=== PATIENT | male | born 1975 | race Caucasian/White ===

== ENCOUNTER 2025-02-24 16:48 | Emergency (ER) | payer OTHER, SELFPAY ==
[2025-02-24 16:52] VITALS: BP 160/85; PULSE 69; TEMP 36.5; O2SAT 98; BMI 40.6
--- NOTE | 2025-02-24 16:58 | XR_ITS ---
[facility] [place] [id number] Patient Name: TERI HUNT MRN: [id number] date: 1975 Sex: M Assigned Patient Location: ED.MAIN Current Patient Location: ED.MAIN Accession/Order Number: [id number] Exam Date: 02/24/2025 17:45 Report Date: 02/24/2025 17:46 At the request of: SAYRA EDDY Procedure: XR forearm LT 2V XR forearm LT 2V 02/24/2025 5:33 PM SIGNS AND SYMPTOMS: ^injury midfoearm/ laceration saw ^Y PROTOCOL: Frontal and lateral radiographs of the left forearm COMPARISON: None FINDINGS: There is a soft tissue laceration along the dorsum of the forearm involving the subcutaneous soft tissues fat but also appearing to extend into the underlying flexor musculature. The radius and ulna are intact. No abnormal radiopaque foreign body. Degenerative changes are noted in the radiocarpal joint space. XR/XR forearm LT 2V IMPRESSION: There is a soft tissue laceration along the dorsum of the forearm involving the subcutaneous soft tissues fat but also appearing to extend into the underlying flexor musculature. The radius and ulna are intact. No abnormal radiopaque foreign body. Impression dictated by: Shashank Lizama M.D. 02/24/2025 5:46 PM Dictation Location: [place] [address] Electronically authenticated by: [id number] Y Date: 02/24/2025 17:46
--- NOTE | 2025-02-24 17:15 | ED.WOUNDLAC1 ---
HPI - Wound/Laceration General Chief Complaint: Wound/Laceration Stated Complaint: LACERATION Time Seen by Provider: 02/24/25 16:55 Source: patient Mode of arrival: walk-in Limitations: no limitations History of Present Illness Onset (ago): hour(s) Extremity Location: Left: forearm Place: Reports home Patient tetanus UTD: Yes Context: Reports accidental Associated symptoms: Reports pain Related Data Home Medications ?Medication ?Instructions ?Recorded ?Confirmed atorvastatin 10 mg tablet 10 mg PO QDAY 02/24/25 02/24/25 Previous Rx's ?Medication ?Instructions ?Recorded cephalexin 500 mg capsule 500 mg PO Q8H 10 days #30 caps 02/24/25 Allergies Allergy/AdvReac Type Severity Reaction Status Date / Time No Known Drug Allergies Allergy Verified 02/24/25 16:52 PFSH PFSH Social History Little interest or pleasure in doing things: not at all Feeling down, depressed, or hopeless: not at all Exam Constitutional Vital Signs, click to edit/add: Last Vital Signs Temp 97.7 F 02/24/25 16:52 Pulse 69 02/24/25 16:52 Resp 18 02/24/25 16:52 BP 160/85 H 02/24/25 16:52 Pulse Ox 98 02/24/25 16:52 O2 Del Method Room Air 02/24/25 16:52 Documenting provider has reviewed patient's vital signs: yes Common normals: no apparent distress, oriented x3, no limitations and healthy appearing HENMT Common normals: normocephalic and head/scalp atraumatic Head and scalp: normal to inspection and normocephalic Respiratory Common normals: normal respiratory effort Auscultation: clear to auscultation bilaterally Cardio Common normals: regular rate, regular rhythm, S1 normal heart sound, S2 normal heart sound and no murmurs Rate: regular rate Rhythm: regular rhythm Extremity Common normals: full ROM and normal capillary refill Left upper extremity: lower arm Psych Common normals: mental status grossly normal Attitude: calm and engaged Activity/motor behavior: appropriate eye contact Speech: normal speech Course Vital Signs Vital signs: Vital Signs Temperature 97.7 F 02/24/25 16:52 Pulse Rate 69 02/24/25 16:52 Respiratory Rate 18 02/24/25 16:52 Blood Pressure 160/85 H 02/24/25 16:52 Pulse Oximetry 98 02/24/25 16:52 Oxygen Delivery Method Room Air 02/24/25 16:52 Temperature 97.7 F 02/24/25 16:52 Pulse Rate 69 02/24/25 16:52 Respiratory Rate 18 02/24/25 16:52 Blood Pressure 160/85 H 02/24/25 16:52 Pulse Oximetry 98 02/24/25 16:52 Oxygen Delivery Method Room Air 02/24/25 16:52 MDM - Wound/Laceration MDM Narrative Medical decision making narrative: Patient is alert and oriented presents today for a laceration of his left forearm on the posterior aspect. e reports he cut it with a miter saw. It is a linear laceration bleeding is currently controlled. He denies numbness or tingling to the extremities. He has good range of motion of the extremity. He denies any other injury. Tetanus shot is up-to-date Patient is alert and oriented no acute distress. He has a laceration on the left forearm in the posterior aspect. No active bleeding at this time. He has good range of motion of his wrist and his fingers with no deficit. Good cap refill distally and good pulses distally. X-ray was performed. no involvement of the bony process. Wound was anesthetized and repaired as noted in the procedure note. Wound was extensively cleaned. There was some muscle tissue involvement. Patient will be placed on Keflex due to the contamination of the wound. He has to follow-up with his PCP or with orthopedics in 3 days for wound recheck. He is to keep the sutures in for 10 to 12 days. He is to return with any worsening or concerning symptoms orthopedic referral was also initiated Differential Diagnosis Differential diagnosis: Likely laceration and other (open fracture.) Medical Records Attestation: I reviewed the patient's medical records. Discharge Plan Discharge Chief Complaint: Wound/Laceration Clinical Impression: Laceration Patient Disposition: Home, Self-Care Time of Disposition Decision: 18:44 Condition: Good Prescriptions / Home Meds: New cephalexin 500 mg capsule 500 mg PO Q8H 10 Days Qty: 30 0RF No Action atorvastatin 10 mg tablet 10 mg PO QDAY Print Language: [place] Instructions: Laceration (ED) Referrals: Delvin Dukes DO [Physician, Orthopedics] - 1 week Referral Note: This week for recheck. Physician,Non-Staff, [Physician] - 1 week Discharge Date/Time: 02/24/25 19:05 Procedures ED Laceration Laceration Laceration 1: Site: upper extremity Side (if applicable): left Size (cm): 8 Description: irregular Depth: involves muscle layer Anesthetic used: lidocaine 1% Anesthesia technique: local infiltration Amount (ml): 15 Pre-repair: wound explored, irrigated extensively, deep structures intact and extensive debridement Skin layer closed with: other Size (cm): 3-0 Number of sutures: 10 Technique: simple, interrupted and horizontal mattress Subcutaneous layer closed with: Vicryl Size: 4-0 Number of sutures: 6 Technique: running
[2025-02-24] MEDS: LIDOCAINE HCL 1% 100 MG/10 ML MDV 30 ML INJ (18:39)
== END 2025-02-24 19:05 | disposition home or self-care (01) ==
PROVIDERS: Emergency Provider Student in an Organized Health Care Education/Training Program; PCP Family Medicine
DX: S51.812A Laceration without foreign body of left forearm, initial encounter (principal); W27.0XXA Contact with workbench tool, initial encounter
CPT/HCPCS: 73090; 99283